=== PATIENT | male | born 1965 | race Hispanic/Latino ===

== ENCOUNTER 2017-11-02 10:33 | Emergency (ER) | payer BC ==
[2017-11-02] MEDS ORDERED: ONDANSETRON HCL MDV 20ML 2 MG/ML VIAL ONE (11:06)
[2017-11-02] MEDS ORDERED: HYDROMORPHONE HCL 0.5 MG/0.5 ML ML ONE (11:06)
[2017-11-02] MEDS ORDERED: TETANUS/DIPHTHERIA TOXOID [ADULT] 0.5 ML VIAL IM ONE (11:06)
[2017-11-02] MEDS ORDERED: SODIUM CHLORIDE 0.9% 1000ML 1,000 ML IV ONE (11:06)
[2017-11-02 11:59] LABS: BASOPHILS % (AUTO) 0.5 % (0.0-5.0); EOSINOPHILS % (AUTO) 1.9 % (0.0-8.0); HEMATOCRIT 50.7 % (42-54); LYMPHOCYTES % (AUTO) 19.5 % (21.0-51.0); MEAN CORPUSCULAR HEMOGLOBIN 34.4 pg (27.0-33.0); MEAN CORPUSCULAR HGB CONC 35.5 g/dL (32.0-36.0); MONOCYTES % (AUTO) 7.1 % (3.0-13.0); PLATELET COUNT (AUTO) 186 K/uL (130-400); RED BLOOD CELL COUNT(AUTO) 5.22 MIL/uL (4.50-6.20); RED CELL DISTRIBUTION WIDTH 12.8 % (11.0-15.5)
[2017-11-02 12:12] LABS: CREATININE 0.9 mg/dL (0.5-1.5); POTASSIUM 3.9 mmol/L (3.5-5.1)
[2017-11-02 12:13] LABS: INR 1.06 (0.85-1.15); PARTIAL THROMBOPLASTIN TIME 25.7 SEC (26.3-35.5); PROTHROMBIN TIME 11.1 SEC (9.6-11.6)
[2017-11-02 12:19] LABS: ALBUMIN 3.9 g/dL (3.5-5.0); TOTAL PROTEIN, SERUM 7.9 g/dL (6.0-8.3)
[2017-11-02] MEDS ORDERED: HYDROMORPHONE 1 MG/1 ML AMP ONE (13:33)
== END 2017-11-02 14:37 | disposition home or self-care (01) ==
LOC: EDH 10:33
DX: S42.392A Other fracture of shaft of left humerus, initial encounter for closed fracture (principal); E78.5 Hyperlipidemia, unspecified; I10 Essential (primary) hypertension; Z98.890 Other specified postprocedural states; Z87.891 Personal history of nicotine dependence; W11.XXXA Fall on and from ladder, initial encounter; Y93.89 Activity, other specified; Y92.89 Other specified places as the place of occurrence of the external cause; Y99.8 Other external cause status
CPT/HCPCS: 29105; 36415; 71045; 73060; 73080; 80053; 85025; 85610; 85730; 90471; 90714; 93005; 96374; 96375; 96376; 99285; J1170 ×2; J7030